=== PATIENT | male | born 1955 | race Caucasian/White ===

== ENCOUNTER 2019-04-08 18:32 | Emergency (ER) | payer OTHER ==
[~2019-04-08] VITALS: Ht 170.2 cm; Wt 68.9 kg
[2019-04-08 18:35] VITALS: Ht 170.2 cm; Wt 68.9 kg
[2019-04-08] MEDS ORDERED: KETOROLAC 30 MG INJ IM STA (19:58)
[2019-04-08] MEDS ORDERED: HYDR-4011 PO (20:08)
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
[2019-04-08 20:19] VITALS: BP 151/83; PULSE 79; RESP 18
== END 2019-04-08 20:21 | disposition home or self-care (01) ==
LOC: FTE 18:32
DX: M54.9 Dorsalgia, unspecified (principal)
CPT/HCPCS: 96372; J1885; Z7502

== ENCOUNTER 2019-04-11 11:17 | Emergency (ER) | payer OTHER ==
[~2019-04-11] VITALS: Ht 170.2 cm; Wt 70.4 kg
[~2019-04-11 11:17] MED LIST: HYDR-4011 PO
[2019-04-11 11:21] VITALS: Ht 170.2 cm; Wt 70.4 kg
[2019-04-11] MEDS ORDERED: KETOROLAC 30 MG INJ IM STA (11:44)
[2019-04-11] MEDS ORDERED: HYDR-3980 PO (11:46)
--- NOTE | 2019-04-11 11:49 | ERD ---
ER Documentation Chief Complaint Chief Complaint Pt reports chronic back pain, pt HTN in triage HPI This is a 64-year-old male with a history of a chronic back pain who presents to the ER for evaluation of back pain. The patient was seen in the emergency room 3 days ago and was diagnosed with [place]. He states that he was taking morphine 120 mg daily and his pain management doctor reduce it to 90 mg and since he is done that he has been in pain. The patient states that he does not have an appointment with his pain management doctor for another week. The patient de nies any fevers or chills or nausea vomiting associated with this. ROS All systems reviewed and are negative except as per history of present illness. Medications Home Meds Active Scripts Hydrocodone/Acetaminophen ([place] 10-325 Tablet) 1 Each Tablet, 1 TAB PO Q6H PRN for PAIN, #5 TAB Prov:KIMBERLY JIN DO 04/11/19 Hydrocodone/Acetaminophen ([place] 5-325 Tablet) 1 Each Tablet, 1 TAB PO Q6H PRN for PAIN, #10 TAB Prov:JAZZMINE LIRA PA-C 04/08/19 Allergies Allergies: Coded Allergies: succinylcholine (Verified Allergy, Unknown, 04/08/19) PMhx/Soc Anesthesia Reaction: Yes (succinylcholine allergy) Hx Neurological Disorder: No Hx Respiratory Disorders: No Hx Cardiac Disorders: No Hx Psychiatric Problems: No Hx Miscellaneous Medical Probl: No Hx Alcohol Use: No Hx Substance Use: No Hx Tobacco Use: No Smoking Status: Never smoker Physical Exam Vitals Vital Signs Date Temp Pulse Resp B/P (MAP) Pulse Ox O2 O2 Flow FiO2 Time Delivery Rate 04/11/19 99.0 96 24 185/109 98 11:21 (134) Physical Exam Const: No acute distress Head: Atraumatic Eyes: Normal Conjunctiva ENT: Normal External Ears, Nose and Mouth. Neck: Full range of motion. No meningismus. Resp: Clear to auscultation bilaterally Cardio: Regular rate and rhythm, no murmurs Abd: Soft, non tender, non distended. Normal bowel sounds Skin: No petechiae or rashes Back: No midline or flank tenderness Ext: No cyanosis, or edema Neur: Awake and alert Psych: Normal Mood and Affect Results 24 hrs Current Medications Medications Dose Sig/Nelda Start Time Status Last (Trade) Ordered Route PRN Stop Time Admin Dose Reason Admin Ketorolac 30 mg ONCE STAT 04/11/19 DC Tromethamine IM 11:44 (Toradol) 04/11/19 11:45 Procedures/MDM This 64-year-old male presents to the ER for evaluation of back pain. He was seen in the emergency room 3 days ago and was given [place]. The patient presents again for chronic pain. He was given Toradol IM. I advised him I will write him prescription for [place] 10 mg #5 tabs, and I advised him that the emergency room is not the proper place to come and get chronic narcotic medications refilled. He was advised he will have to go to his pain management doctors office and receive the rest of his medications as there Departure Diagnosis: Primary Impression: Back pain Additional Impression: Chronic pain Condition: Stable Patient Instructions: Pain Management Referrals: [facility] YOU HAVE RECEIVED A MEDICAL SCREENING EXAM AND THE RESULTS INDICATE THAT YOU DO NOT HAVE A CONDITION THAT REQUIRES URGENT TREATMENT IN THE EMERGENCY DEPARTMENT. FURTHER EVALUATION AND TREATMENT OF YOUR CONDITION CAN WAIT UNTIL YOU ARE SEEN IN YOUR DOCTORS OFFICE WITHIN THE NEXT 1-2 DAYS. IT IS YOUR RESPONSIBILITY TO MAKE AN APPOINTMENT FOR [facility]. IF YOU HAVE A PRIMARY DOCTOR --you should call your primary doctor and schedule an appointment IF YOU DO NOT HAVE A PRIMARY DOCTOR YOU CAN CALL OUR PHYSICIAN REFERRAL HOTLINE AT IF YOU CAN NOT AFFORD TO SEE A PHYSICIAN YOU CAN CHOSE FROM THE FOLLOWING [facility] [address] [facility] [facility] [address] [facility] [facility] [address] [facility]. [facility] [address] [facility]. [facility] [address] [facility]. [facility]. [address] Additional Instructions: Call your primary care doctor TOMORROW for an appointment during the next 1-2 days.See the doctor sooner or return here if your condition worsens before your appointment time. KIMBERLY JIN DO Apr 11, 2019 11:49
[2019-04-11 11:57] VITALS: BP 136/86; PULSE 76; RESP 18
== END 2019-04-11 11:57 | disposition home or self-care (01) ==
LOC: E/R 11:17
DX: M54.9 Dorsalgia, unspecified (principal); I10 Essential (primary) hypertension
CPT/HCPCS: 96372; J1885